=== PATIENT | female | born 1940 | race Caucasian/White ===

== ENCOUNTER 2016-09-07 11:23 | Inpatient (IN) | payer OTHER ==
[2016-09-07 13:25] LABS: CALCIUM 9.8 mg/dL (8.8-10.2); POTASSIUM 4.4 mmol/L (3.5-5.1)
--- NOTE | 2016-09-07 16:20 | Diag Imaging Result Document ---
PROCEDURE NAME: CHEST-2 VIEWS - 09/07/2016 FRONTAL AND LATERAL CHEST 2 VIEWS: COMPARISON: Compared to 01/23/2015. FINDINGS: Patient has a left-sided pacemaker. The heart remains enlarged. The lungs are well expanded. No pleural effusions. There is a nodule in the right lung base. No definite increase in size. IMPRESSION: Stable cardiomegaly and stable nodule in the right lower lobe.
[2016-09-07 16:35] LABS: MANUAL DIFF NEEDED? NO
[2016-09-07 16:39] LABS: EOS# 0.08 X1000 (0.0-0.7); EOS% 1.3 % (0.0-10.0); HEMATOCRIT 30.9 % (37.0-47.0); HEMOGLOBIN 9.2 g/dL (12.0-16.0); LYMPH% 17.6 % (20.5-51.1); MCH 26.6 PG (27-31); MCHC 29.8 g/dL (33-37); MCV 89.3 FL (81-99); MONO# 0.49 X1000 (0.11-0.59); MONO% 7.8 % (1.7-9.3); MPV 10.8 FL (7.4-10.4); NEUT% 72.3 % (42.2-75.2); PLT 270 X1000 (130-400); RBC 3.46 XMIL (4.2-5.4)
[2016-09-07 16:43] LABS: URINE CULTURE NEEDED? NO; URINE MICRO REVIEW NEEDED? NO; URINE SOURCE CLEAN CATCH
[2016-09-07 16:58] LABS: BILIRUBIN URINE NEGATIVE (NEGATIVE); BLOOD URINE LARGE (NEGATIVE); COLOR BROWN; GLUCOSE URINE NEGATIVE (NEGATIVE); LEUKOCYTES URINE LARGE (NEGATIVE); NITRITE URINE NEGATIVE (NEGATIVE); PROTEIN URINE 300 mg/dL (NEGATIVE); SP GRAVITY URINE 1.016; TURBIDITY URINE TURBID (CLEAR); UR EPITHELIAL CELLS <10 /HPF (<10); URINE BACTERIA 4+ /HPF; URINE RBC TNTC /HPF (<10); URINE WBC TNTC /HPF (<10); UROBILINOGEN URINE 2 mg/dL (NORMAL)
[2016-09-07 17:02] LABS: ALBUMIN 3.7 g/dL (3.5-5.0); CALCIUM 9.5 mg/dL (8.8-10.2); POTASSIUM 4.4 mmol/L (3.5-5.1); TOTAL BILIRUBIN 0.29 mg/dL (0.20-1.00); TOTAL PROTEIN 6.6 g/dL (6.3-8.3)
[2016-09-07] MEDS: INVANZ 1 GM/NS 50 ML IV SCH (17:12)
[2016-09-07] MEDS: KLOR-CON PO SCH (17:13)
[2016-09-07] MEDS ORDERED: NORCO-7.5 PO PRN (17:34)
--- NOTE | 2016-09-07 18:13 | HISTORY AND PHYSICAL ---
HISTORY OF PRESENT ILLNESS: Ms. 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 She had ESBL positive E coli infection, and so she is admitted for parenteral antibiotic therapy. Ms. Quiros was followed by [facility] nurses who tried to do the culture as she was very symptomatic for urinary tract infection and she was treated with oral drugs without much help. Ms. Quiros is a known case of hypertension. She had history of 2 heart attacks and a stent placed in. She also has a pacemaker defibrillator placed in her heart and she is followed actively by a tire and tube repairer in [place]. HISTORY OF PREVIOUS SURGERIES: Include history of hysterectomy and cholecystectomy. She has her ovaries left. MEDICATIONS: Include Lasix 40 mg daily, lisinopril 20 mg b.i.d., Zoloft 100 mg daily, aspirin 81 mg daily, potassium chloride 20 mEq 3 times daily., trazodone 50 mg at bedtime, cyclobenzaprine 10 mg b.i.d., and multivitamin with iron daily. SOCIAL HISTORY: As mentioned, she does not smoke, she does not drink. ALLERGIES: Sulfa drugs. REVIEW OF SYSTEMS: Other than burning on urination, generalized weakness, occasional fever, it is negative. PHYSICAL EXAMINATION: VITAL SIGNS: Revealed temperature normal, pulse 118 per minute, respiratory rate 18 per minute, blood pressure 130/76. HEAD AND EYES: Head normocephalic. Pupils PERRLA. Fundus examination normal. NECK: Supple. JVP normal. EARS, NOSE, THROAT: Examination unremarkable. LYMPHATIC: There is no lymphadenopathy, thyroid enlargement, pedal edema, cough, tenderness, anemia, cyanosis or clubbing. Pedal pulses well felt. BREASTS: Exam not done. CHEST: Normal to inspection. Reveals infraclavicular generator on the left side for pacemaker. LUNGS: Clear on auscultation. PMI in the 5th intercostal space outside the midclavicular line. HEART: Sounds normal. No murmur, gallop or rub noted. ABDOMEN: Nondistended. Hernial orifices normal. There is a scar from previous surgery. No guarding, rigidity, free fluid, masses, or organomegaly. Abdomen is obese. RECTAL: Deferred. SALES EFFECTIVENESS MANAGER: Higher functions normal. Cranial nerves normal. Motor and sensory system examination unremarkable. Deep tendon reflexes normal. Plantars downgoing. Skull and spine examination normal for age. No cerebellar signs or signs of meningeal irritation. LOCOMOTOR EXAM: Unremarkable. SKIN EXAM: Unremarkable. CLINICAL IMPRESSION: Patient has urinary tract infection with Escherichia coli. He has failed positive, not responding to outpatient therapy. Only sensitive to parenteral drugs, and she has history of hypertension, sick sinus syndrome, permanent pacemaker with defibrillator, and degenerative arthritis.
[2016-09-07] MEDS: PRINIVIL PO SCH (21:52)
[2016-09-07] MEDS: FLEXERIL PO SCH (21:52)
[2016-09-07] MEDS: DESYREL PO SCH (21:52)
--- NOTE | 2016-09-08 08:46 | PROGRESS NOTE ---
DATE: 09/08/2016 Ms. Quiros is doing better. She is receiving Invanz IV for ESBL UTI. We will put her on Lovenox for thromboembolic prophylaxis. -8
[2016-09-08] MEDS: ZOLOFT PO SCH (09:31)
[2016-09-08] MEDS: ASPIRIN PO SCH (09:34)
[2016-09-08] MEDS: PRINIVIL PO SCH ×2 (09:34→21:31)
[2016-09-08] MEDS: LASIX PO SCH (09:34)
[2016-09-08] MEDS: HEMOCYTE PLUS CAPSULE PO SCH (09:34)
[2016-09-08] MEDS: FLEXERIL PO SCH ×2 (09:34→21:31)
[2016-09-08] MEDS: KLOR-CON PO SCH ×3 (09:34→21:15)
[2016-09-08] MEDS: INVANZ 1 GM/NS 50 ML IV SCH (16:44)
[2016-09-08] MEDS: DESYREL PO SCH (21:31)
[2016-09-09] MEDS: LOVENOX SUBQ SCH (05:20)
[2016-09-09] MEDS: HEMOCYTE PLUS CAPSULE PO SCH (08:18)
[2016-09-09] MEDS: LASIX PO SCH (08:18)
[2016-09-09] MEDS: FLEXERIL PO SCH ×2 (08:18→20:43)
[2016-09-09] MEDS: PRINIVIL PO SCH ×2 (08:18→20:43)
[2016-09-09] MEDS: ASPIRIN PO SCH (08:18)
[2016-09-09] MEDS: ZOLOFT PO SCH (08:18)
[2016-09-09] MEDS: KLOR-CON PO SCH ×3 (08:18→18:18)
--- NOTE | 2016-09-09 08:57 | PROGRESS NOTE ---
DATE: 09/09/2016 SUBJECTIVE: Ms Quiros is doing fairly well. She has acute UTI. She is ESWL positive E coli infection. Urine shows too many WBCs as well as RBCs. There is a history of kidney stones. We will try to do the CT scan on her without contrast also. -6
--- NOTE | 2016-09-09 10:54 | Diag Imaging Result Document ---
PROCEDURE NAME: CT ABD/PELVIS ORAL CONTR ONLY - 09/09/2016 CT OF THE ABDOMEN WITH ORAL BUT NO INTRAVENOUS CONTRAST: FINDINGS: There is a noncalcified nodule in the right lower lobe seen best on image 12 measuring almost 14 mm in AP dimension. This is actually somewhat smaller than on 05/10/2014. Otherwise, there has been no significant change in the appearance of the visualized portion of the chest. Both adrenal glands are enlarged, the left measuring 2.5 cm in greatest dimension. This is slightly larger than on the previous study, however the appearance is similar and the CT density is -11 Hounsfield units which is consistent with hyperplasia. The tail of the pancreas is largely atrophic. The spleen is slightly enlarged but has not changed significantly in size or appearance since the previous study. The liver is stable in appearance. There has been cholecystectomy. There is some fullness in the left collecting system. This was similar in appearance on the previous study. There is a staghorn calculus on the right side measuring at least 3.8 cm in size. This is larger than it was on the previous study of 05/10/2014, however it was present previously. There is some hydronephrosis as well which is probably chronic. There is no evidence of ureterolithiasis. There are extensive arterial calcifications. There is a diverticulum arising from the second portion of the duodenum. There is a fairly large amount of stool throughout the colon. There are varices on the left side of the abdomen. The patency of the portal vein cannot be established without contrast. There is no evidence of significant adenopathy. The small bowel is not distended. CT OF THE PELVIS WITH ORAL BUT NO INTRAVENOUS CONTRAST: FINDINGS: There is no evidence of appendicitis. There is no evidence of free fluid. The urinary bladder is not particularly distended and is similar in appearance to the previous study. There are spondylotic changes in the lumbar spine with apparent spinal stenosis at L2-3, and L3-4. The right ovary appears to contain a 3.4-cm cyst which was slightly larger in appearance on the previous study of 05/10/2014 measuring 3.7 cm at that time. IMPRESSION: Constipation. Varices. Right nephrolithiasis and bilateral hydronephrosis which is probably chronic. Bilateral adrenal hyperplasia. Stable right ovarian cyst.
[2016-09-09] MEDS: INVANZ 1 GM/NS 50 ML IV SCH (18:17)
[2016-09-09] MEDS: DESYREL PO SCH (20:43)
[2016-09-10] MEDS: LOVENOX SUBQ SCH (06:13)
[2016-09-10] MEDS: ZOLOFT PO SCH (09:24)
[2016-09-10] MEDS: FLEXERIL PO SCH ×2 (09:25→21:05)
[2016-09-10] MEDS: HEMOCYTE PLUS CAPSULE PO SCH (09:25)
[2016-09-10] MEDS: PRINIVIL PO SCH ×2 (09:25→21:05)
[2016-09-10] MEDS: ASPIRIN PO SCH (09:25)
[2016-09-10] MEDS: LASIX PO SCH (09:25)
[2016-09-10] MEDS: KLOR-CON PO SCH ×3 (09:25→17:28)
--- NOTE | 2016-09-10 09:33 | PROGRESS NOTE ---
DATE: 09/10/2016 Ms. Quiros is feeling better. She is getting IV Invanz for ESBL positive E. coli infection. She had a CT scan of the abdomen which revealed a staghorn calculus in the right kidney. She has been evaluated by 2 different urologists in the past for this with a difference of opinion. One wanted to do surgery and the other did not, considering her general condition. She does have some bilateral hydronephrosis also and some adrenal hyperplasia. Besides constipation, she has a cyst in the right ovary and has severe spinal stenosis also. Overall condition is unchanged. We will continue with the current management.
[2016-09-10] MEDS: INVANZ 1 GM/NS 50 ML IV SCH (17:27)
[2016-09-10] MEDS: DESYREL PO SCH (21:05)
[2016-09-11] MEDS: LOVENOX SUBQ SCH (06:06)
--- NOTE | 2016-09-11 07:44 | PROGRESS NOTE ---
DATE: 09/11/2016 SUBJECTIVE: I am seeing patient for Dr. De Los Santos in his absence. Patient generally seems a little down. She denies particular abdominal pain. No dysuria. OBJECTIVE: Afebrile. Pulse 101. Respirations 19, blood pressure 150/100, O2 saturation on room air 99-100%.CV: Irregularly irregular. Mild tachycardia. Lungs: CTA. Back: No CVA tenderness. Abdomen: Protuberant. Nontender. Extremities: Trace lower extremity edema. LABS: Reviewed from admission. ASSESSMENT: 1. Extended-spectrum beta-lactamase urinary tract infection on Invanz. 2. Staghorn calculi with notable 2 previous evaluations per Urology. 3. Chronic atrial fibrillation on chronic anticoagulation previously. Currently on Lovenox and aspirin per Dr. De Los Santos. 4. Hypertension. 5. Depression. 6. Coronary artery disease. PLAN: Continue Invanz. Resume her amiodarone. Continue aspirin and Lovenox currently and will to Dr. De Los Santos when he returns. Continue her lisinopril, Lasix, trazodone. Continues soft diet, saline lock.
[2016-09-11] MEDS: HEMOCYTE PLUS CAPSULE PO SCH (11:52)
[2016-09-11] MEDS: CORDARONE PO SCH (11:52)
[2016-09-11] MEDS: PRINIVIL PO SCH ×2 (11:52→22:02)
[2016-09-11] MEDS: KLOR-CON PO SCH ×3 (11:52→22:02)
[2016-09-11] MEDS: ZOLOFT PO SCH (11:52)
[2016-09-11] MEDS: ASPIRIN PO SCH (11:53)
[2016-09-11] MEDS: FLEXERIL PO SCH ×2 (11:53→22:02)
[2016-09-11] MEDS: LASIX PO SCH (11:53)
[2016-09-11] MEDS: INVANZ 1 GM/NS 50 ML IV SCH (15:25)
[2016-09-11] MEDS: DESYREL PO SCH (22:02)
[2016-09-12] MEDS: LOVENOX SUBQ SCH (05:55)
[2016-09-12] MEDS: PRINIVIL PO SCH ×2 (08:56→20:43)
[2016-09-12] MEDS: CORDARONE PO SCH (08:56)
[2016-09-12] MEDS: HEMOCYTE PLUS CAPSULE PO SCH (08:56)
[2016-09-12] MEDS: FLEXERIL PO SCH ×2 (08:56→20:44)
[2016-09-12] MEDS: LASIX PO SCH (08:56)
[2016-09-12] MEDS: KLOR-CON PO SCH ×3 (08:56→17:39)
[2016-09-12] MEDS: ASPIRIN PO SCH (08:56)
[2016-09-12] MEDS: ZOLOFT PO SCH (08:56)
--- NOTE | 2016-09-12 12:18 | PROGRESS NOTE ---
DATE: 09/12/2016 SUBJECTIVE: Patient with no specific complaints currently. OBJECTIVE: Vital signs: Afebrile. Pulse 99-102, respirations 18, blood pressure 130/87, O2 saturation on room air 99 to 100%. CV: Irregularly irregular. Lungs: CTA. Extremities: No calf tenderness, cords, or edema. ASSESSMENT: 1. Complicated urinary tract infection, on Invanz treatment per Dr. De Los Santos. 2. Staghorn calculi. 3. Chronic atrial fibrillation, back on her amiodarone. Patient on Lovenox and aspirin currently. Having been on chronic anticoagulation in the past. Will change back to that to Dr. De Los Santos. 4. Hypertension. 5. Depression. 6. Coronary artery disease. PLAN: Continue Invanz and amiodarone, aspirin, Lovenox, lisinopril, Lasix, trazodone. Monitor the patient closely.
[2016-09-12] MEDS: INVANZ 1 GM/NS 50 ML IV SCH (16:28)
[2016-09-12] MEDS: DESYREL PO SCH (20:44)
[2016-09-13] MEDS: LOVENOX SUBQ SCH (06:47)
--- NOTE | 2016-09-13 09:18 | PROGRESS NOTE ---
DATE: 09/13/2016 Ms. Quiros is doing fairly well. She is getting Invanz for ESBL positive E-coli infection. Overall condition is unchanged. We will continue with the current management on her.
[2016-09-13] MEDS: LASIX PO SCH (10:32)
[2016-09-13] MEDS: ASPIRIN PO SCH (10:33)
[2016-09-13] MEDS: ZOLOFT PO SCH (10:34)
[2016-09-13] MEDS: KLOR-CON PO SCH ×3 (10:34→17:16)
[2016-09-13] MEDS: CORDARONE PO SCH (10:34)
[2016-09-13] MEDS: HEMOCYTE PLUS CAPSULE PO SCH (10:34)
[2016-09-13] MEDS: FLEXERIL PO SCH ×2 (10:34→21:32)
[2016-09-13] MEDS: PRINIVIL PO SCH ×2 (10:34→21:32)
[2016-09-13] MEDS: SAVAYSA PO SCH (10:35)
--- NOTE | 2016-09-13 15:48 | Diag Imaging Result Document ---
PROCEDURE NAME: HEAD W/O CONTRAST - 09/13/2016 CT HEAD WITHOUT CONTRAST: COMPARISON: 01/23/2015. FINDINGS: There is patchy low attenuation in the periventricular and subcortical white matter compatible with moderate microangiopathy, stable. There is no evidence of acute infarct given the limited sensitivity of CT versus MRI. There is no discrete intracranial mass, mass effect, or intracranial hemorrhage. Surrounding soft tissues and bony structures are essentially unremarkable. IMPRESSION: Stable chronic changes as described. No definite acute intracranial pathology.
[2016-09-13] MEDS: INVANZ 1 GM/NS 50 ML IV SCH (17:16)
[2016-09-13] MEDS: DESYREL PO SCH (21:32)
[2016-09-14] MEDS: LOVENOX SUBQ SCH (06:10)
[2016-09-14] MEDS: PRINIVIL PO SCH ×2 (09:29→20:32)
[2016-09-14] MEDS: SAVAYSA PO SCH (09:29)
[2016-09-14] MEDS: CORDARONE PO SCH (09:29)
[2016-09-14] MEDS: KLOR-CON PO SCH ×3 (09:30→18:01)
[2016-09-14] MEDS: FLEXERIL PO SCH ×2 (09:30→20:32)
[2016-09-14] MEDS: HEMOCYTE PLUS CAPSULE PO SCH (09:30)
[2016-09-14] MEDS: LASIX PO SCH (09:30)
[2016-09-14] MEDS: ASPIRIN PO SCH (09:30)
[2016-09-14] MEDS: ZOLOFT PO SCH (09:30)
--- NOTE | 2016-09-14 09:46 | PROGRESS NOTE ---
DATE: 09/14/2016 Ms. Quiros has been getting confused. She has been hallucinating in the room. She thinks it is her home and people are trying to invade her property. She gets scared when she closes the bathroom door. CT scan of the brain was unremarkable except for some microvascular changes. I am going to try to do the EEG and probably get a neurology consultation with Dr. Mark.
[2016-09-14 10:23] LABS: URINE MICRO REVIEW NEEDED? NO; URINE SOURCE CLEAN CATCH
[2016-09-14 10:28] LABS: BILIRUBIN URINE NEGATIVE (NEGATIVE); BLOOD URINE MODERATE (NEGATIVE); COLOR YELLOW; GLUCOSE URINE NEGATIVE (NEGATIVE); LEUKOCYTES URINE SMALL (NEGATIVE); NITRITE URINE NEGATIVE (NEGATIVE); PH URINE 6.5; PROTEIN URINE 50 mg/dL (NEGATIVE); TURBIDITY URINE HAZY (CLEAR); UROBILINOGEN URINE NORMAL (NORMAL)
[2016-09-14 10:29] LABS: UR EPITHELIAL CELLS >10 /HPF (<10); URINE BACTERIA NEGATIVE /HPF; URINE RBC TNTC /HPF (<10); URINE WBC TNTC /HPF (<10)
--- NOTE | 2016-09-14 14:08 | CONSULTATION ---
DATE OF CONSULTATION: 09/14/2016 Ms. Quiros is 76 years old. She was admitted about a week ago with UTI requiring parenteral medicine. There is history of forgetfulness over the last year, some days worse than others, particularly prominent in the last few days in the hospital, according to family. There is not history of previous diagnosed stroke, seizure, serious head injury, ethanol abuse. Her home medicine list includes hydrocodone, trazodone, sertraline, several others. Patient reports she takes medicines herself and does not have supervision or oversight with her home medicines. Computer records show she has been afebrile. Systolic blood pressures have ranged 100-150. Heart rate has ranged 78-120. Other than evidence of UTI, lab work has been unremarkable. Noncontrast CT of the head was reported to showed usual changes, nothing focal or acute, nothing different compared to 01/23/15 scan. On exam, she is awake, alert, attentive, appropriate. Speech is not dysarthric. Language function is intact. Remote memory is fair. Recent memory is poor. She scored 23/30 on bedside Mini Mental Status Exam. However, score is likely artificially low because of her problems maintaining attention. She registered 3 items and then could recall none of 3 items at 5 minutes. She initially told me she could not name the President but eventually did name the President. She was not able to discuss recent news. She was oriented except to the day of the month and the day of the week. She spelled world backward correctly first try. She has full visual lovell tested grossly by confrontational finger counting. Extraocular movements are full. Facial motility is normal and symmetric. Gag is intact. Tongue is midline. I observed her chewing and swallowing without difficulty. She has good power in the arms. She did well on [id number] testing bilaterally. She is slightly tremulous but there is no classifiable tremor. I did not test her gait. IMPRESSION: Global encephalopathy, no evidence of increased intracranial pressure, clinical findings more consistent with poor attention than with major cognitive impairment. She might have a mild cognitive impairment syndrome exacerbated by UTI, hospitalization, medications. Also, I wonder if she might make mistakes with her home medicines. I do not have any urgent suggestion. Negative CT is reassuring. I would like to re-evaluate her cognitive function as an outpatient when practical, not urgent. We briefly discussed cholinesterase inhibitor trial today. Thanks for asking me to see Ms. Quiros. MTDD
--- NOTE | 2016-09-14 19:34 | EEG REPORT ---
DATE: 09/14/2016 EEG: #[id number] COMMENT: This is a digitally recorded EEG done portably on a 76-year-old patient with reported confusion, hallucinations. FINDINGS: During waking, poorly sustained 7-8 Hz posterior rhythm is present bilaterally with uncertain reactivity to eye opening. Background contains polymorphic and rhythmic theta with occasional slowing into the delta range frontally. Photic stimulation did not significantly alter the record. Drowsing occurred briefly. Stage 2 sleep was not recorded. No definite epileptiform discharge was identified. INTERPRETATION: Abnormal EEG because of generalized slowing. CORRELATION: This is indicative of a diffuse encephalopathy and is nonspecific. The absence of epileptiform discharges on a single EEG does not exclude a clinical diagnosis of seizures, but there is nothing on this record to suggest seizure disorder as the reason for her problems.
[2016-09-14] MEDS: INVANZ 1 GM/NS 50 ML IV SCH (20:31)
[2016-09-14] MEDS: DESYREL PO SCH (20:32)
[2016-09-15] MEDS: LOVENOX SUBQ SCH (05:48)
[2016-09-15 07:23] VITALS: BP 120/73
[2016-09-15] MEDS: SAVAYSA PO SCH (09:47)
[2016-09-15] MEDS: KLOR-CON PO SCH (09:48)
[2016-09-15] MEDS: LASIX PO SCH (09:48)
[2016-09-15] MEDS: ZOLOFT PO SCH (09:48)
[2016-09-15] MEDS: PRINIVIL PO SCH (09:48)
[2016-09-15] MEDS: CORDARONE PO SCH (09:48)
[2016-09-15] MEDS: HEMOCYTE PLUS CAPSULE PO SCH (09:48)
[2016-09-15] MEDS: FLEXERIL PO SCH (09:48)
[2016-09-15] MEDS: ASPIRIN PO SCH (09:48)
--- NOTE | 2016-09-15 10:40 | PROGRESS NOTE ---
DATE: 09/15/2016 Ms. Quiros is awake and alert, sitting up in bed. She seems brighter today than yesterday. Family agrees she is brighter. There is no new history. Her EEG yesterday showed generalized slowing. I discussed that report with the patient and family at the bedside. I do not have any new suggestions. I would consider repeat evaluation of cognitive function later when she is more to baseline. Thanks for asking me to see Ms. Quiros.
--- NOTE | 2016-09-15 11:56 | DISCHARGE SUMMARY ---
ADMISSION DATE: 09/07/2016 DISCHARGE DATE: 09/15/2016 Ms. Quiros, who is a 76-year-old white female, who was admitted with acute urinary tract infection, which was ESBL positive. She also had a CT scan of the brain done which revealed microvascular changes, but no acute changes noted. She had electroencephalogram performed and it was abnormal because of the generalized slowing. Her chest x-ray revealed presence of stable cardiomegaly with stable nodule in the right lower lobe. LABORATORY DATA: Revealed CBC revealed mild anemia. Hemoglobin was 9.2. Electrolytes are normal. BUN 21, creatinine 1.3. Cholesterol was 180, triglyceride was 108, HDL 50, LDL was 121. Urinalysis was done twice and it revealed too numerous RBCs and WBCs. The leukocytes were large initially and then repeat leukocytes were small nitrites was negative both times. Initial urine showed 4+ bacteria. Repeat urine was negative. COURSE IN THE HOSPITAL: She was treated with IV Invanz 1 g daily and it was given for about 8 days. General condition improved, except that she started getting confused and has started hallucinating. EEG, CT scan, and neurology consults were made. Dr. Mark saw her and suggested that she may have some element of global amnesia; however, hospitalization, urinary tract infection, and medications were playing some role, hence we decided that when she goes home we are going to, to her medications, we are going to make changes. Definitely stopped the VESIcare, as well as Flexeril. She is going to continue Macrobid that she is taking at home. FINAL DIAGNOSES: 1. Acute urinary tract infection. 2. Encephalopathy, possibly due to urinary tract infection.
== END 2016-09-15 10:22 | disposition home health service (06) | DRG 689 ==
LOC: LABNP 11:23 → DIRADM 11:45 → 3N 14:52
PROVIDERS: ADMIT Internal Medicine; ATTEND Internal Medicine
DX: N39.0 Urinary tract infection, site not specified (principal); G93.49 Other encephalopathy; E27.8 Other specified disorders of adrenal gland; N13.2 Hydronephrosis with renal and ureteral calculous obstruction; I48.2 Chronic atrial fibrillation; R31.9 Hematuria, unspecified; I10 Essential (primary) hypertension; M17.0 Bilateral primary osteoarthritis of knee; M47.816 Spondylosis without myelopathy or radiculopathy, lumbar region; B96.29 Other Escherichia coli [E. coli] as the cause of diseases classified elsewhere; K59.00 Constipation, unspecified; N83.201 Unspecified ovarian cyst, right side; F32.9 Major depressive disorder, single episode, unspecified; I25.10 Atherosclerotic heart disease of native coronary artery without angina pectoris; D64.9 Anemia, unspecified; Z95.810 Presence of automatic (implantable) cardiac defibrillator; I25.2 Old myocardial infarction; Z95.5 Presence of coronary angioplasty implant and graft; Z79.899 Other long term (current) drug therapy; Z79.82 Long term (current) use of aspirin; Z87.442 Personal history of urinary calculi
CPT/HCPCS: 36415; 70450; 71020; 74176; 80048; 80053; 80061; 81001; 83721; 85025; 95816; J1335; J1650

== ENCOUNTER 2016-11-25 11:30 | Inpatient (IN) ==
[2016-11-25] MEDS ORDERED: FLEXERIL PO PRN ×2 (14:03→17:19)
--- NOTE | 2016-11-25 15:01 | Diag Imaging Result Doc PS360 ---
EXAM: CHEST-2 VIEWS HISTORY: CHF/bilateral leg cellulitis COMPARISON: 09/07/2016 FINDINGS: There is stable cardiomegaly. There is transvenous cardiac pacemaker again seen. There are stable nodular opacity with mild scarring at the right base. There are no acute changes identified. There is thoracic spondylosis noted. IMPRESSION: Stable exam compared to 09/07/2016. Cardiomegaly. Nodular opacity with mild scarring in right base. Electronically signed by Juan Lizarraga 11/25/2016 2:59 PM
[2016-11-25 15:17] LABS: MANUAL DIFF NEEDED? NO
[2016-11-25 15:22] LABS: BASO% 1.1 % (0.0-0.8); EOS# 0.08 X1000 (0.0-0.7); EOS% 1.4 % (0.0-10.0); HEMOGLOBIN 9.1 g/dL (12.0-16.0); LYMPH# 0.96 X1000 (1.2-3.4); LYMPH% 17.1 % (20.5-51.1); MCH 25.9 PG (27-31); MCHC 29.4 g/dL (33-37); MCV 88.1 FL (81-99); MONO# 0.43 X1000 (0.11-0.59); MONO% 7.6 % (1.7-9.3); NEUT% 72.8 % (42.2-75.2); PLT 163 X1000 (130-400); RBC 3.52 XMIL (4.2-5.4)
[2016-11-25 15:57] LABS: ALBUMIN 3.8 g/dL (3.5-5.0); CALCIUM 9.5 mg/dL (8.8-10.2); POTASSIUM 4.5 mmol/L (3.5-5.1); TOTAL BILIRUBIN 0.5 mg/dL (0.20-1.00); TOTAL PROTEIN 6.9 g/dL (6.3-8.3)
[2016-11-25] MEDS: 1/2 NS 1,000 ML IV SCH (16:14)
[2016-11-25] MEDS: LASIX IV SCH (16:14)
[2016-11-25] MEDS: KLOR-CON PO SCH (16:14)
[2016-11-25] MEDS: LEVAQUIN 750 MG/D5W 750 MG/150 ML IVPB IV SCH (16:15)
--- NOTE | 2016-11-25 17:03 | EKG Report ---
Test Performed on : 11/25/2016 2:40:21 PM Test Reason : CHF Blood Pressure : / mmHG Vent. Rate : 099 BPM Atrial Rate : 098 BPM P-R Int : 000 ms QRS Dur : 084 ms QT Int : 334 ms P-R-T Axes : 000 -30 096 degrees QTc Int : 428 ms Atrial fibrillation. Left axis deviation Minimal voltage criteria for LVH, may be normal variant Anterior infarct (cited on or before 26-APR-2016) T wave abnormality, consider lateral ischemia Abnormal ECG When compared with ECG of 26-APR-2016 12:11, Atrial fibrillation. has replaced Sinus rhythm. Questionable change in initial forces of Septal leads Confirmed by Brandi RIGGS, Popeye Montelongo ([id number]) on 11/26/2016 3:29:30 PM
[2016-11-25] MEDS ORDERED: NORCO-7.5 PO PRN (17:19)
[2016-11-25] MEDS ORDERED: CELEBREX PO SCH (17:30)
[2016-11-25 17:51] LABS: URINE MICRO REVIEW NEEDED? NO; URINE SOURCE CATH
[2016-11-25 17:55] LABS: BILIRUBIN URINE NEGATIVE (NEGATIVE); BLOOD URINE MODERATE (NEGATIVE); COLOR STRAW; GLUCOSE URINE NEGATIVE (NEGATIVE); LEUKOCYTES URINE LARGE (NEGATIVE); NITRITE URINE NEGATIVE (NEGATIVE); PH URINE 6.5; PROTEIN URINE NEGATIVE (NEGATIVE); SP GRAVITY URINE 1.003; TURBIDITY URINE HAZY (CLEAR); UROBILINOGEN URINE NORMAL (NORMAL)
[2016-11-25 17:56] LABS: UR EPITHELIAL CELLS <10 /HPF (<10); URINE BACTERIA 4+ /HPF; URINE CULTURE NEEDED? YES; URINE RBC TNTC /HPF (<10); URINE WBC TNTC /HPF (<10)
--- NOTE | 2016-11-25 18:29 | HISTORY AND PHYSICAL ---
Ms. Quiros who is a 76-year-old white female, a known case of coronary artery disease, hypertensive heart disease with congestive heart failure, patient who has a pacemaker and defibrillator and who is in chronic atrial fibrillation is admitted with congestive heart failure and bilateral stasis dermatitis. The patient has been getting more short of breath and has increasing edema with some blisters coming on the legs which are breaking down and has been infected with both legs being red and tender. This is going on for last 2 or 3 days and she was concerned and came to the office. She was found to be in congestive heart failure. She had surgery for cholecystectomy. She had hysterectomy in the past. She had surgery on the right shoulder. She has severe degenerative disk disease in the lumbar spine. Recently she was hospitalized for ESBL positive E. coli infection. She is a nonsmoker. Does not drink. ALLERGIC: Sulfa drugs. MEDICATIONS: Include trazodone, sertraline, potassium, nitrofurantoin, multivitamin, lisinopril, Lortab 7.5, Vytorin and Savaysa 60 mg daily, Celebrex, baby aspirin and amiodarone 200 mg daily. REVIEW OF SYSTEMS: Other than shortness of breath she denies having any chest pain or cough.GI, , Endocrine: Negative. Neurological: Unremarkable. Skin: She has increasing edema on the legs with redness and pain in the legs. PHYSICAL EXAMINATION: VITAL SIGNS: Reveal temperature normal, pulse 101 per minute, respiratory rate 17 per minute, blood pressure 143/87. HEENT: Head normocephalic. Pupils PERRLA. Fundus examination reveals grade 2 change of hypertensive retinopathy. NECK: Supple. JVP normal. ENT: Examination unremarkable. There is no evidence of lymphadenopathy, thyroid enlargement, cyanosis, or clubbing. The patient is anemic with a pale skin and mucous membrane. She had bilateral leg edema with stasis dermatitis and a small wound on the left leg which is closing. BREAST EXAM: Not done. CHEST: Reveals left infraclavicular placement of the pacemaker generator. LUNGS: Reveal bilateral basal rales. PMI in the 6th intercostal space outside the midclavicular line. HEART: Sounds normal. No murmur, gallop or rub noted. ABDOMEN: Nondistended, obese. Hernial orifices normal. No guarding, rigidity, free fluid, masses, or organomegaly. Bowel sounds normal. RECTAL: Deferred. SECURITY INCIDENT RESPONSE SPECIALIST: Higher functions normal. Cranial nerves normal. Motor and sensory system examination unremarkable. Deep tendon reflexes normal. Plantars downgoing. Skull and spine examination normal for age. No cerebellar signs or signs of meningeal irritation. LOCOMOTOR EXAM: Unremarkable. SKIN EXAM: Unremarkable. IMPRESSION: Patient in congestive heart failure. Patient also has bilateral stasis dermatitis with an ulceration. PLAN: To start IV Levaquin. She has a history of kidney stones and some renal failure. Later on, after the culture results we may think about starting her on IV vancomycin. We will get a wound nurse consult. Get an echocardiogram. Her proBNP is elevated. cc: Fadi De Los Santos MD
[2016-11-25] MEDS: PRINIVIL PO SCH (20:57)
[2016-11-25] MEDS ORDERED: DESYREL PO SCH (21:00)
[2016-11-25] MEDS ORDERED: PRINIVIL PO SCH (21:00)
[2016-11-26] MEDS: DESYREL PO SCH ×2 (01:12→22:26)
[2016-11-26] MEDS ORDERED: KLOR-CON PO SCH (09:00)
[2016-11-26] MEDS ORDERED: ZOLOFT PO SCH (09:00)
[2016-11-26] MEDS ORDERED: VYTORIN 10/40 MG PO SCH (09:00)
[2016-11-26] MEDS ORDERED: ASPIRIN EC PO SCH (09:00)
[2016-11-26] MEDS ORDERED: HEMOCYTE PLUS CAPSULE PO SCH (09:00)
--- NOTE | 2016-11-26 09:41 | PROGRESS NOTE ---
DATE: 11/26/2016 Ms. Quiros is in about the same general condition. Her lungs reveal some congestion because of CHF. dermatitis is improving. There is less so oozing from the leg. She is getting IV Levaquin. Her cultures are pending. We will continue the current management. -6 cc: Fadi De Los Santos MD
[2016-11-26] MEDS: ASPIRIN PO SCH (10:03)
[2016-11-26] MEDS: CORDARONE PO SCH (10:03)
[2016-11-26] MEDS: PRINIVIL PO SCH ×2 (10:03→22:26)
[2016-11-26] MEDS: ZETIA PO SCH (10:04)
[2016-11-26] MEDS: ZOLOFT PO SCH (10:04)
[2016-11-26] MEDS: MACRODANTIN PO SCH (10:04)
[2016-11-26] MEDS: HEMOCYTE PLUS CAPSULE PO SCH (10:04)
[2016-11-26] MEDS: KLOR-CON PO SCH ×3 (10:04→19:43)
[2016-11-26] MEDS: ZOCOR PO SCH (10:05)
[2016-11-26] MEDS: LASIX IV SCH (10:05)
[2016-11-26] MEDS: SAVAYSA PO SCH (10:05)
[2016-11-26] MEDS: LEVAQUIN 750 MG/D5W 750 MG/150 ML IVPB IV SCH (15:18)
--- NOTE | 2016-11-26 17:27 | ECHO REPORT ---
ORDER DATE: 11/25/2016 ECHOCARDIOGRAM: MEASUREMENTS: Left ventricular end-diastolic diameter 6.1, end systolic diameter 5.1, posterior wall thickness 0.7, septal thickness 0.9, left atrium 5.5, aortic root 3.2. 1. Technically difficult study due to limited acoustic window quality. 2. Aortic valve is sclerotic with reduced aortic valve leaflet mobility. Peak gradient across the aortic valve by Doppler is 18 mmHg with a mean gradient 11 mmHg. Mild aortic stenosis is suggested. There is trace aortic regurgitation. Mild mitral annular calcification. Posterior is demonstrated. There is moderate mitral regurgitation. Tricuspid and pulmonic valves are without structural abnormality with moderate tricuspid regurgitation and mild pulmonic insufficiency. Estimated systolic PA pressure by Doppler is 60-65 mmHg. Aortic root is normal size. 3. Mild to moderate left ventricular enlargement with normal wall thickness demonstrated. Estimated left ventricular ejection fraction is 25%-30% in the setting of global hypokinesis. Left atrium is moderately enlarged. Right atrium is mild to moderately enlarged. Right ventricle appears mildly enlarged. Right ventricular systolic function appears mildly reduced. 4. No pericardial effusion. 5. Pacemaker/defibrillator lead evident right ventricle. 6. Appearance of inferior vena cava suggests elevated central venous pressure. CONCLUSION: 1. Technically difficult study. 2. Mild aortic stenosis with trace aortic regurgitation. 3. Moderate mitral regurgitation. 4. Moderate tricuspid regurgitation with moderate to severe pulmonary hypertension by Doppler. 5. Mild to moderate left ventricular enlargement with estimated left ventricular ejection fraction 25%-30%. 6. Biatrial enlargement. 7. Mild right ventricular enlargement with mildly reduced right ventricular systolic function. 8. Elevated central venous pressure is suggested. cc: MD Fadi Whyte MD
[2016-11-26] MEDS: 1/2 NS 1,000 ML IV SCH (22:25)
[2016-11-27] MEDS: MACRODANTIN PO SCH (08:18)
[2016-11-27] MEDS: ASPIRIN PO SCH (08:18)
[2016-11-27] MEDS: PRINIVIL PO SCH ×2 (08:18→20:46)
[2016-11-27] MEDS: ZOCOR PO SCH (08:19)
[2016-11-27] MEDS: SAVAYSA PO SCH (08:19)
[2016-11-27] MEDS: ZOLOFT PO SCH (08:19)
[2016-11-27] MEDS: LASIX IV SCH (08:19)
[2016-11-27] MEDS: CORDARONE PO SCH (08:19)
[2016-11-27] MEDS: HEMOCYTE PLUS CAPSULE PO SCH (08:19)
[2016-11-27] MEDS: KLOR-CON PO SCH ×3 (08:19→16:59)
[2016-11-27] MEDS: ZETIA PO SCH (08:19)
[2016-11-27] MEDS ORDERED: SALINE LOCK IV FLUID XX ONE (13:03)
[2016-11-27 14:04] LABS: MANUAL DIFF NEEDED? NO
[2016-11-27 14:25] LABS: BASO% 0.5 % (0.0-0.8); EOS# 0.05 X1000 (0.0-0.7); EOS% 0.6 % (0.0-10.0); HEMATOCRIT 34.5 % (37.0-47.0); HEMOGLOBIN 10.5 g/dL (12.0-16.0); IMM GRAN# 0.03 X1000 (0.0-0.04); IMM GRAN% 0.4 % (0.0-0.5); LYMPH# 0.86 X1000 (1.2-3.4); LYMPH% 10.9 % (20.5-51.1); MCH 26.6 PG (27-31); MCHC 30.4 g/dL (33-37); MCV 87.6 FL (81-99); MONO# 0.51 X1000 (0.11-0.59); MONO% 6.4 % (1.7-9.3); MPV 11.6 FL (7.4-10.4); NEUT% 81.2 % (42.2-75.2); PLT 182 X1000 (130-400); RBC 3.94 XMIL (4.2-5.4)
[2016-11-27 14:32] LABS: CALCIUM 9.6 mg/dL (8.8-10.2); POTASSIUM 3.9 mmol/L (3.5-5.1)
--- NOTE | 2016-11-27 16:01 | PROGRESS NOTE ---
DATE: 11/27/2016 SUBJECTIVE: The patient is breathing better. She has noted improvement in the swelling in her legs. OBJECTIVE: Afebrile, pulse 115, respirations 20, blood pressure 164/92, O2 saturation room air 93%-94%. CV: Irregularly irregular. Tachycardia. Lungs: Mild diminished breath sounds bilaterally. Abdomen nontender, protuberant. Extremities: 1+ lower extremity edema. Labs reviewed from 2 days ago. Glucose 132 today. ASSESSMENT: 1. [id number] systolic CHF. 2. Venous stasis dermatitis. 3. Escherichia coli urinary tract infection sensitive to Macrobid. 4. Chronic atrial fibrillation. 5. Mild with trace AR. 6. Moderate MR. 7. Moderate TR. 8. Severe pulmonary hypertension. 9. Biatrial enlargement. 10. Nodular opacities, right lung. PLAN: Continue medications to include lisinopril, Lasix, Levaquin, Macrobid with increase in dosage. Discontinue IVF. Repeat labs to especially look at her potassium and renal function on current medications. cc: MD Fadi Thomas MD
[2016-11-27] MEDS: LEVAQUIN 750 MG/D5W 750 MG/150 ML IVPB IV SCH (16:50)
[2016-11-27] MEDS: DESYREL PO SCH (20:46)
[2016-11-27] MEDS: MACROBID PO SCH (20:46)
[2016-11-28] MEDS: LASIX IV SCH (08:09)
[2016-11-28] MEDS: PRINIVIL PO SCH ×2 (08:10→21:37)
[2016-11-28] MEDS: ZOLOFT PO SCH (08:10)
[2016-11-28] MEDS: ZETIA PO SCH (08:10)
[2016-11-28] MEDS: ZOCOR PO SCH (08:10)
[2016-11-28] MEDS: SAVAYSA PO SCH (08:10)
[2016-11-28] MEDS: KLOR-CON PO SCH ×3 (08:10→17:25)
[2016-11-28] MEDS: CORDARONE PO SCH (08:10)
[2016-11-28] MEDS: ASPIRIN PO SCH (08:10)
[2016-11-28] MEDS: HEMOCYTE PLUS CAPSULE PO SCH (08:10)
[2016-11-28] MEDS: MACROBID PO SCH ×2 (08:10→21:37)
--- NOTE | 2016-11-28 14:39 | PROGRESS NOTE ---
DATE: 11/28/2016 SUBJECTIVE: Patient is sleeping but easily arousable. She has no complaints and she is breathing better. OBJECTIVE: Vital signs: Afebrile, pulse 63-110, blood pressure 147/99, respiratory rate 20, O2 saturation room air 96%. CV: Irregularly irregular. Mild tachycardia. Lungs: Mild decreased breath sounds at the lower lung field. Overall fair air movement. Extremities: Trace lower extremity edema. Venous stasis dermatitis improved. LABS: Yesterday showed white count 7.9, hemoglobin 10.5, platelets 182,000, neutrophils 81, lymphocytes 11. Sodium 144, potassium 3.9, chloride 104, CO2 26, BUN 21, creatinine 1.4. Blood sugars ranging 118-201. ProBNP elevated at 3500. I's and O's in past 24 hours 729 in, 4925 out. She is eating 75% of her meals. ASSESSMENT: 1. Acute on chronic systolic congestive heart failure. 2. Ernestina stasis dermatitis lower extremities. 3. Escherichia coli urinary tract infection on Macrobid. 4. Chronic atrial fibrillation. 5. Mild aortic stenosis with trace aortic regurgitation . 6. Moderate mitral regurgitation. 7. Moderate tricuspid regurgitation. 8. Severe pulmonary hypertension. 9. Biatrial enlargement. 10. Nodular opacities right lung. PLAN: Continue Lasix, lisinopril, Levaquin, Macrobid, saline locked IV yesterday, increase Lasix slightly. cc: MD Fadi Thomas MD
[2016-11-28] MEDS: LEVAQUIN 750 MG/D5W 750 MG/150 ML IVPB IV SCH (17:25)
[2016-11-28] MEDS: DESYREL PO SCH (21:37)
[2016-11-29] MEDS: KLOR-CON PO SCH ×3 (08:21→16:41)
[2016-11-29] MEDS: CORDARONE PO SCH (08:21)
[2016-11-29] MEDS: SAVAYSA PO SCH (08:21)
[2016-11-29] MEDS: ZOCOR PO SCH (08:22)
[2016-11-29] MEDS: PRINIVIL PO SCH ×2 (08:22→21:03)
[2016-11-29] MEDS: ZETIA PO SCH (08:22)
[2016-11-29] MEDS: LASIX IV SCH (08:22)
[2016-11-29] MEDS: ASPIRIN PO SCH (08:22)
[2016-11-29] MEDS: MACROBID PO SCH ×2 (08:22→21:03)
[2016-11-29] MEDS: ZOLOFT PO SCH (08:22)
[2016-11-29] MEDS: HEMOCYTE PLUS CAPSULE PO SCH (08:23)
--- NOTE | 2016-11-29 09:30 | PROGRESS NOTE ---
DATE: 11/29/2016 Ms. Quiros has ESBL UTI. She also has cellulitis which has just about cleared up. She is being treated with IV Levaquin, and she has been getting Macrobid once a day to prevent infection. Would advise Dr. Pal to see her for his expert opinion about the recurrent ESBL infections. -7 cc: Fadi De Los Santos MD
[2016-11-29] MEDS: LEVAQUIN 750 MG/D5W 750 MG/150 ML IVPB IV SCH (15:08)
[2016-11-29] MEDS: DESYREL PO SCH (21:03)
--- NOTE | 2016-11-30 04:52 | CONSULTATION ---
DATE OF CONSULTATION: 11/29/2016 CONCLUSION: The patient has a persistent extended spectrum beta lactamase producing E coli urinary tract infection. Unfortunately, she has a large right renal staghorn calculus and apparently the patient is not a good candidate to do lithotripsy or surgery. RECOMMENDATIONS: I have discontinued Levaquin and placed the patient on ertapenem. I have ordered a PICC be placed. I have put in a consult for [facility] to supply the antibiotic at home. I plan to treat her for 3 weeks and then and I will repeat her urine to see if it is sterile. I will see her back in my office at 3 weeks, also. DISCUSSION: The patient was admitted to the hospital with shortness of breath and leg edema. She also has a persistent extended spectrum beta lactamase producing E coli urinary tract infection. It is symptomatic that her symptoms are that she does have dysuria. She also has suprapubic pain and CVA pain as well. The patient's studies thus far show a CBC with a white count of 7910, hemoglobin 10.5, and platelet count 182,000. Creatinine is 1.4. GFR is 37. The patient's urine grew the E. coli as mentioned above. The patient had a wound on her left leg which grew an enterococcus but that has completely cleared and there is no infection in the leg. I looked at a CT scan prior to this admission and it showed a large right staghorn calculus which is getting bigger and bilateral hydronephrosis which is considered chronic. PAST MEDICAL HISTORY/REVIEW OF SYSTEMS: Eyes and Ears: Patient has decreased hearing. Her vision is okay. Neck: No stiffness. Respiratory: Patient has some shortness of breath, especially with exertion. She is not coughing. Cardiovascular: She is not having chest pain or palpitations. She does have bilateral leg edema. GI: She has not had a stool in 3-4 days. Before that, she was not having diarrhea. She is not having any nausea or vomiting. Genitourinary: See above. Endocrine: She does not have diabetes or thyroid disease. Bones, Joints, Muscles: She does have pain in her hands due most likely osteoarthritis and also in her knees, she has pain. Neurologic: She does not have any seizures or blackout spells. She does not have any motor or sensory deficit. The remainder of the patient's review of systems was completed and was negative. OBSTETRICAL AND GYNECOLOGICAL HISTORY: She is a 4, para 3, AB 1. She has had a hysterectomy. PREVIOUS HOSPITALIZATIONS AND OPERATIONS: She has had 3 labor and deliveries, a miscarriage, and a hysterectomy. She has had a cholecystectomy, 2 hemorrhoidectomies, myocardial infarction, carpal tunnel surgery and implantation of a permanent pacemaker and defibrillator. MEDICAL DISEASES: Positive for hypertension, myocardial infarction, skin cancer , and for a cardiac arrhythmia requiring a pacemaker and defibrillator. INFECTIOUS DISEASE HISTORY: Positive for recurrent and chronic urinary tract infections. Negative for pneumonia. FAMILY HISTORY: Positive for hypertension, myocardial infarction, and cancer. SOCIAL HISTORY: She lives in [place]. She is a . She lives alone. She does not have any pets. The patient does not smoke cigarettes, drink alcoholic beverages or abuse drugs. ALLERGIES: She is allergic to sulfa. MEDICATIONS: Her home medications and see he include the following: Flexeril, Cordarone, aspirin, Celebrex, ezetimibe/simvastatin which is Vytorin, Savaysa, Lasix, lisinopril, hydrocodone, nitrofurantoin, multivitamins, potassium chloride, Zoloft and trazodone. PHYSICAL EXAMINATION: Vital Signs: Temperature is 98.3 degrees, pulse 94, respirations 19, blood pressure 124/68. Patient weighs 247 pounds. Generally: This is an obese elderly female. She is in no acute distress. Head, Eyes, Ears, Nose, and Throat: She can hear my spoken words and see near objects. No drainage noted from the nose or ears. Neck: No meningismus. Thorax: Pacemaker present. Lungs: Clear to auscultation. Cardiovascular: Regular heart rate. Abdomen: Soft. There is some CVA tenderness as well as suprapubic tenderness. Neurologic: Patient is awake. She can move her extremities. There is no tremor. Her sensation is intact to touch. Her memory, as regarding her medical history, was slightly diminished. Extremities: The patient has bilateral leg edema. It has improved a lot since she has been in the hospital and elevating her legs. There is no erythema or ulcers on her legs at this time. cc: MD Fadi Gonzalez MD MTDD
[2016-11-30 06:38] LABS: INR 1.3; PROTIME 13.9 Seconds (9.2-11.7)
[2016-11-30] MEDS ORDERED: NS 250 ML ONE (08:24)
[2016-11-30] MEDS: PRINIVIL PO SCH ×2 (08:40→21:09)
[2016-11-30] MEDS: ASPIRIN PO SCH (08:40)
[2016-11-30] MEDS: CORDARONE PO SCH (08:41)
[2016-11-30] MEDS: ZOCOR PO SCH (08:41)
[2016-11-30] MEDS: ZOLOFT PO SCH (08:41)
[2016-11-30] MEDS: LASIX IV SCH (08:41)
[2016-11-30] MEDS: MACROBID PO SCH ×2 (08:41→21:08)
[2016-11-30] MEDS: SAVAYSA PO SCH (08:42)
[2016-11-30] MEDS: INVANZ 1 GM/NS 1 GM/50 ML IVPB IV SCH (08:42)
[2016-11-30] MEDS: KLOR-CON PO SCH ×3 (08:44→16:01)
--- NOTE | 2016-11-30 09:37 | PROGRESS NOTE ---
DATE: 11/30/2016 Ms. Quiros was seen by Dr. Pal who thinks she needs the Invanz for 4 more days, and she is getting the PICC line now. After everything is settled, we will discharge her either tonight or tomorrow. -0 cc: Fadi De Los Santos MD
--- NOTE | 2016-11-30 09:53 | Diag Imaging Result Doc PS360 ---
EXAM: CHEST-PORTABLE HISTORY: Picc placement TECHNIQUE: Portable upright COMPARISON: 11/25/2016. FINDINGS: There is a left-sided pacemaker. Interval placement of a left-sided PICC line. The tip lies near the junction of the distal superior vena cava and right atrium. The heart remains enlarged. Poor inspiratory effort. No pleural effusions identified. Mild central vascular prominence. IMPRESSION: Placement of a left-sided PICC line with the tip near the superior vena cava/right atrium. Electronically signed by Dat Grant 11/30/2016 9:51 AM
[2016-11-30] MEDS: ZETIA PO SCH (11:01)
[2016-11-30] MEDS: HEMOCYTE PLUS CAPSULE PO SCH (11:01)
--- NOTE | 2016-11-30 18:09 | PROGRESS NOTE ---
DATE: 11/30/2016 PRESENT ILLNESS: The patient has extended spectrum beta-lactamase producing E. coli urinary tract infection which unfortunately involves a large right renal staghorn calculus. MEDICATIONS: Patient is receiving ertapenem. PHYSICAL EXAMINATION: Vital Signs: Temperature is 97.9 degrees, pulse 88, respirations 20, blood pressure 116/74. General: This is an obese, elderly female. She is in no acute distress. Chest: Patient has a permanent pacemaker and defibrillator in place. The site is not swollen. Lungs: Clear to auscultation. Cardiovascular: Regular heart rate. Abdomen: Abdomen and flank soft and nontender. Extremities: Patient has a PICC in her right arm. The site is not swollen or bleeding. LAB AND X-RAY: Chest x-ray today shows cardiomegaly and mild vascular prominence. There is no lab for today. ASSESSMENT AND PLAN: I plan to continue ertapenem for a total of 3 weeks to treat the urinary tract infection. I plan to see the patient in the office in 3 weeks and at that time I will check a urine culture to see if the organism at least temporarily has been eradicated. COMORBIDITIES: She does have a history of recurrent and chronic urinary tract infections. She also has a large R renal staghorn calculus. cc: MD Fadi Gonzalez MD MTDD
[2016-11-30] MEDS: DESYREL PO SCH (21:09)
[2016-12-01] MEDS: KLOR-CON PO SCH ×2 (08:18→12:14)
[2016-12-01] MEDS: ZETIA PO SCH (08:18)
[2016-12-01] MEDS: MACROBID PO SCH (08:18)
[2016-12-01] MEDS: INVANZ 1 GM/NS 1 GM/50 ML IVPB IV SCH (08:18)
[2016-12-01] MEDS: ZOLOFT PO SCH (08:18)
[2016-12-01] MEDS: CORDARONE PO SCH (08:18)
[2016-12-01] MEDS: PRINIVIL PO SCH (08:19)
[2016-12-01] MEDS: ZOCOR PO SCH (08:19)
[2016-12-01] MEDS: HEMOCYTE PLUS CAPSULE PO SCH (08:19)
[2016-12-01] MEDS: LASIX IV SCH (08:19)
[2016-12-01] MEDS: SAVAYSA PO SCH (08:19)
[2016-12-01] MEDS: ASPIRIN PO SCH (08:19)
[2016-12-01 08:51] VITALS: BP 133/70
--- NOTE | 2016-12-01 09:31 | PROGRESS NOTE ---
DATE: 12/01/2016 SUBJECTIVE: Ms. Quiros had a repeat chest x-ray done yesterday to find out about the placement of the PICC line, which the tip of the PICC line is near the superior vena cava in the right atrium. She is seen by Dr. Pal, and he has made arrangements for the IV Invanz at home. We will discharge her today. -2 cc: Fadi De Los Santos MD
--- NOTE | 2016-12-01 11:14 | DISCHARGE SUMMARY ---
ADMISSION DATE: 11/25/2016 DISCHARGE DATE: Ms. Quiros, who is a 76-year-old white female, was admitted with congestive heart failure, as well as cellulitis on both legs. COURSE IN HOSPITAL: Echocardiogram had revealed mild aortic stenosis, moderate mitral regurgitation, moderate tricuspid regurgitation. Estimated ventricular ejection fraction was about 30%. The culture studies on the urine revealed Escherichia coli extended spectrum beta- lactamase positive. Faecalis was noted from enterococcus from the leg and it was sensitive to vancomycin, as well as blood cultures are negative. She was treated initially with IV Levaquin and then Invanz was started after we learned about extended spectrum beta-lactamase infection. She was put on medications Invanz. General condition improved. IV Lasix helped her tremendously. She will be discharged today. FINAL DIAGNOSES: 1. Diastolic congestive heart failure. 2. Bilateral stasis dermatitis. 3. She has history of nephrolithiasis. 4. Recurrent urinary tract infection, extended spectrum beta-lactamase positive. She was seen by Dr. Pal, who has made arrangements for IV Invanz at home. She has a PICC line and she will be followed by the home health. cc: Fadi De Los Santos MD
--- NOTE | 2016-12-01 12:45 | PROGRESS NOTE ---
DATE: 12/01/2016 The patient has extended spectrum beta lactamase producing Escherichia coli urinary tract infection which, unfortunately, involves a large right renal staghorn calculus. The plan is to treat the patient with Invanz for 3 weeks. She will be getting her antibiotic at the outpatient clinic. I plan to see the patient in 3 weeks in my office. I have told the patient that it will be extremely difficult if not impossible to sterilize her urine because the calculus is involved, and it is impossible to sterilize, especially a large calculus. cc: MD Fadi Gonzalez MD
== END 2016-12-01 14:01 | disposition home health service (06) ==
LOC: DIRADM 11:30 → 3N 13:27
PROVIDERS: ADMIT Internal Medicine; ATTEND Internal Medicine